=== PATIENT | female | born 1990 | race African-American/Black ===

== ENCOUNTER 2023-11-13 17:32 | Emergency (ER) | payer MEDICAID ==
[~2023-11-13] VITALS: Ht 165.1 cm; Wt 75.0 kg
[2023-11-13 18:26] LABS: Basophils # (auto) 0 10 ^3/uL (0-0.2); Eosinophils # (auto) 0 10 ^3/uL (0-0.8); Eosinophils % (auto) 0.3 % (0.0-7.0); Hemoglobin 12.2 g/dL (12.2-16.2); Mean Corpuscular Volume 79.8 fL (80.0-100.0)
[2023-11-13 18:28] LABS: Basophils % (auto) 0.3 % (0.0-2.0); Hematocrit 38.2 % (36.0-46.0); Lymphocytes # (auto) 3.6 10 ^3/uL (0.4-5.4); Lymphocytes % (auto) 38.9 % (10.0-50.0); Mean Corpuscular Hemoglobin 25.6 pg (28.0-32.0); Monocytes # (auto) 0.5 10 ^3/uL (0-1.3); Neutrophils % (auto) 54.5 % (37.0-80.0); Red Blood Cells 4.79 10^6/uL (4.0-5.20); White Blood Cell 9.2 10^3/uL (4.4-10.8)
[2023-11-13 18:42] LABS: Alanine Aminotransferase 15 U/L (7-40); Albumin 4.5 g/dL (3.2-4.8); Alkaline Phosphatase 76 U/L (46-116); Anion Gap 4 (5-15); Aspartate Aminotransferase 10 U/L (13-40); BUN/Creatinine Ratio 21.6 (10.0-20.0); Blood Urea Nitrogen 16 mg/dL (9-23); Calcium 9.7 mg/dL (8.7-10.4); Carbon Dioxide 28 mmol/L (20-30); Chloride 107 mmol/L (98-107); Glucose 95 mg/dL (74-106); Potassium 4.4 mmol/L (3.5-5.1); Sodium 139 mmol/L (136-145)
[2023-11-13 18:43] LABS: Bilirubin, Total 0.2 mg/dL (0.2-1.0); Total Protein 7.2 g/dL (5.7-8.2)
[2023-11-13 19:51] LABS: Urine Bacteria NONE SEEN /hpf (None Seen); Urine Blood 3+ /uL (Negative); Urine Clarity Clear (Clear); Urine Color Yellow (Yellow); Urine Protein, UAD TRACE (Negative); Urine Specific Gravity 1.022 (1.001-1.035); Urine Urobilinogen Normal (Negative); Urine WBC 11 /hpf (0 - 5)
[2023-11-13] MEDS ORDERED: ZOFR4T PO (20:14)
[2023-11-13] MEDS ORDERED: IBUP1TAB5 PO (20:14)
[2023-11-13] MEDS ORDERED: CEPH500T PO (20:14)
[2023-11-13 21:11] VITALS: BP 152/82; PULSE 72; RESP 18; TEMP 98.2; O2SAT 98
[2023-11-13] MEDS: ONDANSETRON ODT 4 MG TAB PO ONE (21:11)
[2023-11-13] MEDS: cefTRIAXone SOD 1,000 MG VL IM ONE (21:11)
[2023-11-13] MEDS: HYDROcodone-ACET 5/325MG TAB PO ONE (21:11)
== END 2023-11-13 21:11 | disposition home or self-care (01) ==
LOC: ER 17:32
DX: N39.0 Urinary tract infection, site not specified (principal); R10.2 Pelvic and perineal pain; N93.9 Abnormal uterine and vaginal bleeding, unspecified; Z79.899 Other long term (current) drug therapy
CPT/HCPCS: 36415; 76830; 76856; 80053; 81001; 84702; 85025

== ENCOUNTER 2024-02-13 14:16 | Emergency (ER) | payer MEDICAID ==
[~2024-02-13] VITALS: Ht 165.1 cm; Wt 65.0 kg
[~2024-02-13 14:16] MED LIST: CEPH500T PO; IBUP1TAB5 PO; ZOFR4T PO
[2024-02-13 15:31] VITALS: BP 132/88; PULSE 80; RESP 16; TEMP 98.2; O2SAT 100
[2024-02-13] MEDS ORDERED: NAPR-746 PO (15:47)
== END 2024-02-13 15:50 | disposition home or self-care (01) ==
LOC: ER 14:16
DX: M25.512 Pain in left shoulder (principal); W22.8XXA Striking against or struck by other objects, initial encounter; Y93.89 Activity, other specified; Y92.89 Other specified places as the place of occurrence of the external cause; Y99.8 Other external cause status
CPT/HCPCS: 73030

== ENCOUNTER 2024-07-01 16:53 | Emergency (ER) | payer MEDICAID ==
[~2024-07-01] VITALS: Ht 165.1 cm; Wt 69.7 kg
[~2024-07-01 16:53] MED LIST changes: +NAPR-746 PO
--- NOTE | 2024-07-01 18:17 | DVH ---
CLINICAL INDICATION: Left shoulder pain s/p fall TECHNIQUE: XY L SHOULDER 2+ VIEW XRAY Comparison: XY L SHOULDER 2+ VIEW XRAY on DOS: 02/13/24 FINDINGS/IMPRESSION: There is no evidence of acute fracture or dislocation. The visualized joint space is well maintained. The alignment is anatomical. There is no radiopaque foreign body.
[2024-07-01 18:32] VITALS: BP 136/90; PULSE 80; RESP 18; TEMP 98.6; O2SAT 98
[2024-07-01] MEDS ORDERED: METH4PAK PO (18:33)
[2024-07-01] MEDS ORDERED: CYCL-837 PO (18:33)
--- NOTE | 2024-07-01 18:33 | ED.PDOC ---
Back pain HPI HPI Comments This is a 33-year-old female patient presents to the ED chief complaint left shoulder pain. Patient reports she was on a chair and fell off the chair and stretched her left arm while trying to hold onto the chair and pulled her left shoulder and trap on the left side. She notes a happened around 5 days ago. She is complaining of moderate pain 7/10 on pain scale achy nature nonradiating type pain. Using [id number] pain relief measures with no help. Denies numbness, weakness or any other known injuries. Chief Complaint: Upper Extremity Time Seen by MD: 17:56 Primary Care Provider: none Reviewed Notes: Nurses Notes, Medications, Allergies Allergies: Coded Allergies: NO KNOWN ALLERGIES (Unverified , 11/13/23) Home Meds Active Scripts Methylprednisolone (Medrol Dosepak) 4 Mg Emre, 4 MG PO UD for 6 Days, #21 TAB UAD Prov:BJ SANCHEZ ARE[employer] MECH[employer]IC 07/01/24 Cyclobenzaprine Hcl (Cyclobenzaprine Hcl) 5 Mg Tab, 1 TAB PO QPM PRN for 7 Days, #7 TAB Prov:BJ SANCHEZ ARE[employer] MECH[employer]IC 07/01/24 Naproxen (Naproxen) 500 Mg Tab, 500 MG PO BIDP PRN for 14 Days, #28 TAB 0 Refills Prov:JEANNIE MG [employer] H[employer] SALESPERSON 02/13/24 Ibuprofen Micronized (Ibuprofen) 600 Mg Tab, 1 TAB PO Q6HPRN PRN, #20 TAB as needed for pain Prov:KADEEM MELENDEZA Q [employer] H[employer] SALESPERSON 11/13/23 Ondansetron Odt 4MG Tab (ZOFRAN PO) 4 Mg Tb, 1 TAB PO Q8HPRN PRN, #10 TAB as needed for painODT TAB-DISSOLVE IN MOUTH, THEN SWALLOW Prov:KADEEM MELENDEZA Q [employer] SALESPERSON 11/13/23 Cephalexin Monohydrate (Cephalexin) 500 Mg Tab, 1 TAB PO QID for 10 Days, #40 TAB Prov:MADY MELENDEZ Q [employer] H[employer] SALESPERSON 11/13/23 Information Source: Patient Mode of Arrival: Ambulatory Past Medical History PAST MEDICAL HISTORY: Denies Surgical History: Denies all surgeries COMMUNITY LEADER History: No Pertinent COMMUNITY LEADER History Family History Family History: Reviewed,noncontributory to illness Constitutional: denies: chills, diaphoresis, fatigue, fever, malaise, sweats, weakness, others EENTM: denies: blurred vision, double vision, ear bleeding, ear discharge, ear drainage, ear pain, ear ringing, eye pain, eye redness, hearing loss, mouth pain, mouth swelling, nasal discharge, nose bleeding, nose congestion, nose pain, photophobia, tearing, throat pain, throat swelling, voice changes, others Respiratory: denies: cough, hemoptysis, orthopnea, SOB at rest, shortness of breath, SOB with excertion, stridor, wheezing, others Cardiovascular: denies: chest pain, dizzy spells, diaphoresis, Dyspnea on exertion, edema, irregular heart beat, left arm pain, lightheadedness, palpitations, PND, syncope, others Gastrointestinal: denies: abdomen distended, abdominal pain, blood streaked bowels, constipated, diarrhea, dysphagia, difficulty swallowing, hematemesis, melena, nausea, poor appetite, poor fluid intake, rectal bleeding, rectal pain, vomiting, others Genitourinary: denies: abnormal vagina bleeding, burning, dyspareunia, dysuria, flank pain, frequency, hematuria, incontinence, pain, , vagina discharge, urgency, others Neurological: denies: dizziness, fainting, headache, left sided numbness, left sided weakness, numbness, paresthesia, pre-existing deficit, right sided numbness, right sided weakness, seizure, speech problems, tingling, tremors, weakness, others Musculoskeletal: reports: others (Left shoulder trap); denies: back pain, gout, joint pain, joint swelling, muscle pain, muscle stiffness, neck pain Integumetry: denies: bruises, change in color, change in hair/nails, dryness, laceration, lesions, lumps, rash, wounds, others Allergic/Immunocompromised: denies: Difficulty Healing, Frequent Infections, Hives, Itching, others Hematologic/Lymphatic: denies: anemia, blood clots, easy bleeding, easy bruising, swollen glands, others Endocrine: denies: excessive hunger, excessive sweating, excessive thirst, excessive urination, flushing, intolerance to cold, intolerance to heat, unexplained weight gain, unexplained weight loss, others Psychiatric: denies: anxiety, bipolar disorder, depression, hopeless, panic disorder, schizophrenia, sleepless, suicidal, others Physical Exam General Appearance: No Apparent Distress, Normal HEENT: Pharynx Normal Neck: Full Range of Motion, Non-Tender Respiratory: Lungs Clear, No Respiratory Distress, Normal Breath Sounds Cardiovascular: No Edema, No Murmur, Normal Peripheral Pulses, Regular Rate/Rhythm Breast Exam: Deferred Gastrointestinal: Non Tender, Soft Genitalia: Deferred Pelvic: Deferred Rectal: Deferred Extremities: Normal range of motion Musculoskeletal : Location: Left Extremity Location: Shoulder (Moderate tenderness palpated over left trapezius muscle. With noted spasms. Shoulder full range of motion without discomfort within the joint no clicking or crepitus noted. Strength sensory and motion intact. Positive radial pulse.) Apperance: Normal Neurologic: Alert, sack maker II-XII nml as Tested, No Motor Deficits, Normal Affect, Normal Mood, No Sensory Deficits Cerebellar Function: Normal Reflexes: Normal Skin: Dry, Normal Color, Warm Lymphatic: No Adenopathy Was a procedure done? Was a procedure done?: No Back Pain Differential Dx Differential Diagnosis: Fracture, Musculoskeletal Pain X-Ray, Labs, Meds, VS Vital Signs Date Time Temp Pulse Resp B/P (MAP) Pulse Ox O2 Delivery O2 Flow Rate FiO2 07/01/24 18:32 98.6 80 18 136/90 (105) 98 98.6 07/01/24 18:32 80 18 98 Room Air 07/01/24 17:16 98.3 78 18 139/96 (110) 99 Time of 1ST Reevaluation: 18:33 Reevaluation 1ST: Improved Patient Education/Counseling: Diagnosis, Treatment, Prognosis Family Education/Counseling: No Family Present Departure 1 Departure Time of Disposition: 18:33 Impression: Primary Impression: Left shoulder strain Qualified Codes: S46.912A - Strain of unspecified muscle, fascia and tendon at shoulder and upper arm level, left arm, initial encounter Disposition: HOME / SELF CARE / HOMELESS Condition: Stable e-Prescriptions Methylprednisolone (Medrol Dosepak) 4 Mg Emre 4 MG PO UD for 6 Days, #21 TAB UAD Prov: BJ SANCHEZ 07/01/24 Cyclobenzaprine Hcl (Cyclobenzaprine Hcl) 5 Mg Tab 1 TAB PO QPM PRN for 7 Days, #7 TAB Prov: BJ SANCHEZ 07/01/24 Discharged With: Self Critical Care Note Critical Care Time?: No Stability Stability form required: No BJ SANCHEZ Jul 01, 2024 18:33
== END 2024-07-01 18:43 | disposition home or self-care (01) ==
LOC: ER 16:53
DX: S46.912A Strain of unspecified muscle, fascia and tendon at shoulder and upper arm level, left arm, initial encounter (principal); Z79.899 Other long term (current) drug therapy; W18.39XA Other fall on same level, initial encounter; Y93.89 Activity, other specified; Y92.89 Other specified places as the place of occurrence of the external cause; Y99.8 Other external cause status
CPT/HCPCS: 73030